=== PATIENT | female | born 1990 | race Asian ===

== ENCOUNTER 2025-01-29 19:19 | Emergency (ER) | payer MEDICAID ==
[~2025-01-29] VITALS: Ht 154.9 cm; Wt 112.9 kg
--- NOTE | 2025-01-29 19:27 | ELECTROCARDIOGRAPH REPORT ---
[facility] Test Date: 2025-01-29 Test Time: 19:23:25 Pat Name: LATANYA LUCIA Department: EMERGENCY ROOM Room: Gender: F Legal Coordinator: LIDIA : 1990 Requested By: MARISELA WAY Order Number: [id number] Reading MD: Dr. James Sanchez Measurements Intervals [place] Rate: 95 P: 43 OH: 129 QRS: 51 QRSD: 94 T: 18 QT: 330 QTc: 415 Interpretive Statements Sinus rhythm Electronically Signed On 01-30-2025 6:16:[address] James Sanchez Please click the below link to view image of tracing.
[2025-01-29 20:07] LABS: MEAN PLATELET VOLUME 8.4 FL (7.4-10.4); RED CELL DISTRIBUTION WIDTH 15.5 % (11.5-14.5)
[2025-01-29 20:08] LABS: CREATININE 0.67 MG/DL (0.40-0.90); PRO BRAIN NATRIURETIC PEPTIDE 213 PG/ML (0-125); TOTAL CARBON DIOXIDE 21.9 MMOL/L (24-32); eCRCL 89 ML/MIN; eGFR > 90 ML/MIN
[2025-01-29 20:26] LABS: PLATELET ESTIMATE NORMAL
[2025-01-29 20:38] VITALS: TEMP 97.6
--- NOTE | 2025-01-29 20:42 | RADIOLOGY REPORT ---
CHEST RADIOGRAPH REASON FOR EXAM: Chest pain COMPARISON: None TECHNIQUE: One view of the chest is provided FINDINGS: The cardiomediastinal silhouette is within normal limits for technique. There is no focal a irspace disease. There is no significant pleural effusion. No acute bony abnormality is identified. IMPRESSION: No radiographic evidence of acute cardiopulmonary process.
--- NOTE | 2025-01-29 22:15 | Physician Documentation ---
History of Present Illness ~ Chief Complaint: Chest Pain Stated Complaint: CP Time Seen by MD: 19:52 Primary Medical Doctor: none Mode of Arrival: POV HPI 34 year old female developed R of sternal chest pain today at work. She works here at the hospital. She denies any associated fever, cough, shortness of breath, N/V/D. She has never experienced this before. She has no risk factors for DVT/PE. Medication Reconciliation Allergies: Coded Allergies: iodine (Verified Allergy, Unknown, 01/29/25) shellfish derived (Verified Allergy, Unknown, 01/29/25) Past Medical History Last Menstrual Period: Dec 26, 2024 Smoking Status: Current every day smoker Review of Systems All Other Systems at this time: Reviewed and Negative Physical Exam Vital Signs: RN Vital Signs have been reviewed: Yes, Temperature: 97.6, Source: Oral, Heart Rate: 89, Respiratory Rate: 17, BP: 125/88, Pulse Oximetry: 98, Weight: 112.900 Oxygen Flow Rate: 0 Physical Exam HEENT: PERRL, moist oral mucosa, EOMI Pulmonary: No respiratory distress Cardiac: RRR, no murmur, rub or gallop MSK: no deformity Skin: w/d/i, no rash Neuro: alert, nonfocal Psych: normal affect Progress Results/Orders Results/Orders Orders - MARISELA WAY MD Chest,Single View (01/29/25 19:46) Monitor (01/29/25 19:26) Saline Lock (01/29/25 19:26) Oxygen (01/29/25 19:26) Hs Troponin I W Calculations (01/29/25 22:26) Completed Orders - MARISELA WAY MD Chest,Single View (01/29/25 19:46) Cbc/Diff (01/29/25 19:26) BMP (01/29/25 19:26) PBNP (01/29/25 19:26) Electrocardiogram (01/29/25 19:26) Hs Troponin I W Calculations (01/29/25 19:26) Hs Troponin I W Calculations (01/29/25 21:26) Vital Signs 01/29/25 01/29/25 01/29/25 19:24 20:30 20:38 Temp 97.6 97.6 Pulse 113 89 Resp 15 17 B/P (MAP) 125/88 (100) Pulse Ox 99 98 O2 Flow Rate 0 Laboratory Tests Test 01/29/25 19:39 01/29/25 21:23 White Blood Count 10.0 Red Blood Count 6.25 H Hemoglobin 12.8 Hematocrit 40.6 Mean Corpuscular Volume 65.0 L Mean Corpuscular Hemoglobin 20.5 L Mean Corpuscular Hemoglobin Concent 31.5 L Red Cell Distribution Width 15.5 H Platelet Count 283 Mean Platelet Volume 8.4 Neutrophils (%) (Auto) 60.0 Lymphocytes (%) (Auto) 31.8 Monocytes (%) (Auto) 6.7 Eosinophils (%) (Auto) 0.9 Basophils (%) (Auto) 0.6 Neutrophils # (Auto) 6.0 Lymphocytes # (Auto) 3.2 Monocytes # (Auto) 0.7 Eosinophils # (Auto) 0.1 Basophils # (Auto) 0.1 CBC Comment Platelet Estimate Normal Red Blood Cell Morphology Perf Basophilic Stippling Anisocytosis 1+ Microcytosis 1+ Sodium Level 137 Potassium Level 3.7 Chloride Level 104 Carbon Dioxide Level 21.9 L Anion Gap 11 Blood Urea Nitrogen 9 Creatinine 0.67 Estimated GFR/1.73 m2 > 90 BUN/Creatinine Ratio 13.4 Glucose Level 101 Calcium Level 9.2 Troponin I High Sensitivity 56 *H 55 *H Pro-B-Type Natriuretic Peptide 213 H Albumin 4.0 Chemistry Comments Troponin I High Sens Percent Delta 1 Troponin I Hi Sens Absolute Change -1 Medical Decision Making Findings 34 year old female as above with little to no risk factors for significant disease, here with chest pain that appears atypical. VS and exam benign. EKG interpreted by me demonstrated NSR at a rate of 95/minute, no STEMI criteria, no dysrhythmia. CXR interpreted by me demonstrated normal contours, no PTX, no PNA, no acute. CBC/CMP/troponin x 2 were benign, though she did have a very minor elevation in her troponin, her repeat troponin was stable and I do not interpret this as significant and likely represents a false positive result. PERC negative for PE risk. Counseled strict return precautions, follow up PCP. Differential Dx:Considerations: Include: angina, esophageal reflux/spasm, myocardial infarction, pericarditis, pleuritis, pancreatitis, pneumonia, pulmonary embolus Departure Disposition: HOME / SELF CARE / HOMELESS Impression: Primary Impression: Acute chest pain Discharge Instructions: Nonspecific Chest Pain, Adult Referrals: NO PRIMARY CARE PROVIDER (PCP) Education Educated: Patient Educated regarding: diagnosis, treatment, prognosis, need for follow up Signature Scribe Signature: . Attestation: . MARISELA WAY MD Jan 29, 2025 22:15
[2025-01-29] MEDS: ibuprofen tablet 400 MG TABLET PO ONE (22:53)
[2025-01-29 22:55] VITALS: BP 118/65; PULSE 65; RESP 18; O2SAT 98
== END 2025-01-29 22:56 | disposition home or self-care (01) ==
LOC: ER 19:20
DX: R07.89 Other chest pain (principal); F17.200 Nicotine dependence, unspecified, uncomplicated; Z88.8 Allergy status to other drugs, medicaments and biological substances; Z91.013 Allergy to seafood
CPT/HCPCS: 36415; 71045; 80048; 83880; 84484; 85008; 85025; 93005; 99285